=== PATIENT | female | born 1990 | race Caucasian/White ===

== ENCOUNTER 2017-07-19 07:51 | Emergency (ER) | payer BC, OTHER ==
[2017-07-19] MEDS ORDERED: Ketorolac Tromethamine 30 MG/ML VIAL ONE (08:21)
[2017-07-19] MEDS ORDERED: Ondansetron HCl/PF 4 MG/2 ML Vial ONE (08:43)
[2017-07-19] MEDS ORDERED: MORPHINE 10 MG/ML SYRINGE ONE (08:58)
[2017-07-19] MEDS ORDERED: Sodium Chloride 0.9% 1,000 ML BAG ONE (09:06)
[2017-07-19 09:19] LABS: Pregnancy Test - Urine (BHCG) Negative (Negative); Pregu Control Background? CLEAR/WHITE (CLR/WHITE); Pregu Control Bar Appear? YES (CONTROL BAR)
[2017-07-19 09:20] LABS: Bilirubin Negative (Negative); Blood, Urine Small (Negative); Clarity Clear (Clear); Glucose, Urine (Dipstick) Negative (Negative); Leukocyte Trace (Negative); Nitrite Negative (Negative); Protein, Urine (Dipstick) Negative (Neg-Trace); Urobilinogen 0.2 mg/dL (0.2-1.0)
[2017-07-19 09:24] LABS: Bacteria/HPF 1+ HPF (None Seen)
--- NOTE | 2017-07-19 09:42 | CT ---
CT ABDOMEN AND PELVIS NONCONTRAST: History: Left flank pain. FINDINGS: The left renal collecting system and ureter are dilated to an oval calculus within the distal left ur eter and measures up to 0.6 cm length x 0.4 cm diameter. Other multiple calcifications are present wi thin dilated calices of the left kidney, measuring up to 0.5 cm at the superior pole. Right renal collecting system, ureter, and urinary bladder are decompressed without stones apparent. Lack of contrast limits evaluation for other abnormalities. IMPRESSION: 1. Partial obstruction at a 6 x 4 mm distal left ureteral calculus. 2. Additional nonobstructing left renal calculi. POS: ROXI
[2017-07-19] MEDS ORDERED: Tamsulosin HCl 0.4 MG CAP ONE (09:50)
== END 2017-07-19 10:05 | disposition home or self-care (01) ==
LOC: MADERS 07:51
DX: N13.2 Hydronephrosis with renal and ureteral calculous obstruction (principal); Z79.899 Other long term (current) drug therapy
CPT/HCPCS: 74176; 81003; 81015; 81025; 96361; 96374; 96375; J1885; J2270; J2405; J7050